=== PATIENT | male | born 1945 | race Caucasian/White ===

== ENCOUNTER 2016-08-21 05:23 | Inpatient (IN) | payer OTHER, MEDICARE ==
[~2016-08-21] VITALS: Ht 180.3 cm; Wt 91.4 kg
[2016-08-21] VITALS (12 sets, daily range): BP systolic 62–147; BP diastolic 31–71
[~2016-08-21 05:23] MED LIST: ALFALFA COMPLEX PO; APPLE CIDER VINEGAR PO; ASCORBIC ACID500 M3 PO; ATORVASTATIN CA80 MG PO; CALCIUM-MAGNES1 EA11 PO; CRANBERRY CONC1 EAC1 PO; LECITHIN1200 M1 PO; LO-DOSE ASPIRIN81 M2 PO; MULTI-VITAMIN1 EAC4 PO; ODORLESS GARLI500 MG PO; OMEPRAZOLE20 MG PO; PLAVIX75 MG PO; PRINIVIL10 MG PO; PROBIOTIC & AC1 EACH PO; SAW PALMETTO450 MG PO; SPIRONOLACTONE25 MG PO; TOPROL XL25 MG PO; TYLENOL ARTHRI650 MG PO; VITAMIN B CO1 TABLET PO; VITAMIN D32000 UNI1 PO; VITAMIN E400 UNIT PO; [UNRECOGNIZED DRUG - CODE] PO; [UNRECOGNIZED DRUG - OTHER]
[2016-08-21] MEDS ORDERED: HYDROCODON-ACE1 EAC7 PO (13:02)
[2016-08-21 15:13] LABS: METH RESISTANT S AUREUS PCR NEGATIVE (NEGATIVE)
[2016-08-21 15:15] LABS: PROBE CHECK PASS; SPECIMEN PROCESSING CONTROL PASS
[2016-08-22] VITALS (24 sets, daily range): BP systolic 74–131; BP diastolic 33–75
[2016-08-22 08:12] LABS: TROP-I INTERPRETATION NEGATIVE; TROPONIN-I 0.02 ng/mL (0.0-0.30)
[2016-08-23] VITALS (15 sets, daily range): BP systolic 90–127; BP diastolic 35–69
[2016-08-23] MEDS ORDERED: TOPROL XL25 MG PO (13:35)
[2016-08-23] MEDS ORDERED: PRINIVIL10 MG PO (13:36)
== END 2016-08-23 14:52 | disposition home or self-care (01) | DRG 39 ==
LOC: 2SOUTH 05:23 → 4WEST 12:26
PROVIDERS: Surgery
DX: I65.21 Occlusion and stenosis of right carotid artery (principal); I95.81 Postprocedural hypotension
CPT/HCPCS: 84484; 87641; 93005; C1768; J0360; J0690; J1644; J1650; J2250; J2370; J2720; J2795; J3010; J7050; J7120